=== PATIENT | female | born 1990 | race Caucasian/White ===

== ENCOUNTER 2021-10-14 14:58 | Emergency (ER) | payer SELFPAY ==
[~2021-10-14] VITALS: Ht 152.4 cm; Wt 68.0 kg
[2021-10-14 15:16] VITALS: BP 117/64
== END 2021-10-14 20:58 | disposition left against medical advice (07) ==
LOC: ER 14:58
DX: Z53.21 Procedure and treatment not carried out due to patient leaving prior to being seen by health care provider (principal)